=== PATIENT | female | born 1995 | race Caucasian/White ===

== ENCOUNTER → 2020-09-22 | Outpatient (CLI) | payer MEDICAID ==
[2014-07-05 11:15] VITALS: BP 110/68
[~2020-09-22] MED LIST: AMOXICILLIN875 MG PO; IMPLANON68 MG ID; LEVSIN 0.10.125 MG/T PO; MIRALAX17 GM/DOSE PO; PYRIDIUM200 M1 PO
== END ==
LOC: LAB 07:31
DX: J00 Acute nasopharyngitis [common cold] (principal); Z20.828 Contact with and (suspected) exposure to other viral communicable diseases

== ENCOUNTER → 2021-06-21 | Outpatient (CLI) | payer MEDICAID | LOC: RAD 09:53 | DX: Z86.711 Personal history of pulmonary embolism (principal) | CPT/HCPCS: Q9967 ==

== ENCOUNTER → 2021-08-02 | Outpatient (CLI) | payer MEDICAID | LOC: RAD 10:53 | DX: I27.21 Secondary pulmonary arterial hypertension (principal) ==

== ENCOUNTER → 2021-08-23 | Outpatient (CLI) | payer MEDICAID ==
[2021-08-23 11:05] LABS: BASO # 0.04 K/mm3 (0.02-0.10); EOS # 0.11 K/mm3 (0.04-0.40); EOS % 1.4 % (1.0-5.0); HEMATOCRIT 42.9 % (37.0-47.0); HEMOGLOBIN 14.5 g/dL (12.5-16.0); LYMPH# 2.75 K/mm3 (1.50-4.00); MEAN CELL VOLUME 92 fl (78-100); MEAN CORPUSCULAR HEMOGLOBIN 31 pg (27-31); MEAN CORPUSCULAR HGB CONC 34 g/dL (33-37); MEAN PLATELET VOLUME 10.5 fl (7.4-10.4); NEU # 4.27 K/mm3 (1.40-6.50); PLATELET COUNT 191 K/mm3 (130-400); RED BLOOD COUNT 4.67 M/mm3 (4.10-5.30); RED CELL DISTRIBUTION WIDTH 12.8 % (11.5-14.5); WHITE BLOOD COUNT 7.7 K/mm3 (4.8-10.8)
[2021-08-23 11:09] LABS: ALBUMIN 4.7 g/dL (3.5-5.0); POTASSIUM 4.4 mmol/L (3.5-5.1)
[2021-08-23 11:10] LABS: CALCIUM 10.3 mg/dL (8.3-10.5)
[2021-08-23 11:11] LABS: TOTAL PROTEIN 8.4 g/dL (6.4-8.3)
[2021-08-23 11:13] LABS: TOTAL BILIRUBIN 0.6 mg/dL (0.2-1.2)
== END ==
LOC: LAB 10:44
PROVIDERS: Physician Assistant
DX: Z79.01 Long term (current) use of anticoagulants (principal)

== ENCOUNTER → 2021-12-24 | Outpatient (CLI) | payer MEDICAID | LOC: RAD 14:00 | DX: K76.0 Fatty (change of) liver, not elsewhere classified (principal); R79.89 Other specified abnormal findings of blood chemistry ==

== ENCOUNTER → 2022-01-14 | Outpatient (CLI) | payer MEDICAID ==
[2022-01-14 15:32] LABS: BASO # 0.02 K/mm3 (0.02-0.10); EOS # 0.13 K/mm3 (0.04-0.40); EOS % 1.4 % (1.0-5.0); HEMATOCRIT 37.5 % (37.0-47.0); MEAN CELL VOLUME 91 fl (78-100); MEAN CORPUSCULAR HEMOGLOBIN 32 pg (27-31); MEAN CORPUSCULAR HGB CONC 35 g/dL (33-37); MONO # 0.63 K/mm3 (0.20-0.80); NEU # 5.05 K/mm3 (1.40-6.50); PLATELET COUNT 174 K/mm3 (130-400); RED BLOOD COUNT 4.13 M/mm3 (4.10-5.30); WHITE BLOOD COUNT 9.1 K/mm3 (4.8-10.8)
[2022-01-14 15:40] LABS: ALBUMIN 4.6 g/dL (3.5-5.0)
[2022-01-14 15:41] LABS: POTASSIUM 4.5 mmol/L (3.5-5.1)
[2022-01-14 15:42] LABS: CALCIUM 9.8 mg/dL (8.3-10.5)
[2022-01-14 15:43] LABS: TOTAL PROTEIN 7.8 g/dL (6.4-8.3)
[2022-01-14 15:45] LABS: TOTAL BILIRUBIN 0.9 mg/dL (0.2-1.2)
[2022-01-14 23:36] LABS: HEPATITIS C ANTIBODY Negative (Negative)
== END ==
LOC: LAB 15:21
PROVIDERS: Physician Assistant
DX: E78.5 Hyperlipidemia, unspecified (principal); E88.81 Metabolic syndrome and other insulin resistance; E28.2 Polycystic ovarian syndrome; K90.9 Intestinal malabsorption, unspecified; R74.01 Elevation of levels of liver transaminase levels

== ENCOUNTER → 2022-04-01 | Outpatient (CLI) | payer MEDICAID | LOC: LAB 11:02 | DX: E88.81 Metabolic syndrome and other insulin resistance (principal); E28.2 Polycystic ovarian syndrome; E78.5 Hyperlipidemia, unspecified; K76.0 Fatty (change of) liver, not elsewhere classified; R74.01 Elevation of levels of liver transaminase levels; Z98.890 Other specified postprocedural states ==